=== PATIENT | female | born 1975 | race Caucasian/White ===

== ENCOUNTER 2024-02-24 19:46 | Emergency (ER) | payer OTHER ==
[~2024-02-24] VITALS: Ht 162.6 cm; Wt 63.5 kg
[2024-02-24] MEDS ORDERED: CEPH500C2 PO (20:24)
[2024-02-24] MEDS: predniSONE 50 MG TABLET PO ONE (20:39)
[2024-02-24] MEDS: CEphaleXIN 500 MG CAPSULE PO ONE (20:39)
[2024-02-24] MEDS: diphenhydrAMINE 50 MG CAPSULE PO ONE (20:39)
[2024-02-24] MEDS ORDERED: predniSONE 50 MG TABLET ONE (20:40)
[2024-02-24] MEDS ORDERED: diphenhydrAMINE 50 MG CAPSULE ONE (20:41)
[2024-02-24] MEDS ORDERED: CEphaleXIN 500 MG CAPSULE ONE (20:41)
[2024-02-24 20:51] VITALS: BP 124/77; TEMP 98; O2SAT 98
== END 2024-02-24 20:53 | disposition home or self-care (01) ==
LOC: ER 19:49
DX: I88.9 Nonspecific lymphadenitis, unspecified (principal); Z79.899 Other long term (current) drug therapy
CPT/HCPCS: 99283; J7512; A4606; A4663; Q0163